=== PATIENT | male | born 1960 | race African-American/Black ===

== ENCOUNTER 2019-01-14 01:45 | Emergency (ER) | payer MEDICAID, OTHER ==
[~2019-01-14] VITALS: Ht 172.7 cm; Wt 70.0 kg
[~2019-01-14 01:45] MED LIST: AMLO-243 PO; AMLO1CAP13; ARIP30TA2 PO; BENA10TA10 PO; CARI350T27 PO; CICL34.62 TP; CYCL10TA7 PO; CYCL5TAB10; HYDR1TAB4; HYDR28CR28 TP; INSLAN SQ; INSU3INS6 SQ; LOVA40TA73 PO; METF-416 PO; METF500T3 PO; MIRT30TA77 PO; OMEP40CA34 PO
[2019-01-14] MEDS ORDERED: DEXTROSE 50% WATER 50ML SYRINGE IV STA (02:09)
[2019-01-14 02:39] LABS: BASOPHILS % 0.7 % (0.0-2.0); EOSINOPHILS % 2.2 % (0.0-5.0); HEMATOCRIT. 40.9 % (42.0-52.0); HEMOGLOBIN. 13.7 g/dL (14.0-18.0); LYMPHOCYTES % 37.5 % (20.0-50.0); MEAN CORPUSCULAR HEMOGLOBIN 29.7 pg (28.0-32.0); MEAN CORPUSCULAR VOLUME 88.8 fL (80.0-94.0); MEAN PLATELET VOLUME 8.1 fl (7.4-10.4); MONOCYTES % 7.4 % (2.0-8.0); NEUTROPHILS % 52.2 % (40.0-76.0); PLATELET 159 x1000/uL (130-400); RED BLOOD CELL COUNT 4.61 mill/uL (4.7-6.1); RED CELL DISTRIBUTION WIDTH 13.5 % (11.6-14.6)
[2019-01-14 02:42] LABS: CHLORIDE 110 mEq/L (98-107)
[2019-01-14 02:46] LABS: ETHANOL BLOOD < 10 mg/dL
[2019-01-14 04:47] LABS: CLARITY URINE CLEAR (CLEAR); COLOR URINE YELLOW (YELLOW); KETONES URINE NEGATIVE (NEGATIVE); LEUKOCYTE ESTERASE URINE NEGATIVE (NEGATIVE); NITRITE URINE NEGATIVE (NEGATIVE); OCCULT BLOOD URINE NEGATIVE (NEGATIVE); PH URINE 6.5 (4.5-8.0); PROTEIN URINE NEGATIVE (NEGATIVE); SPECIFIC GRAVITY URINE 1.012 (1.005-1.030)
[2019-01-14 04:55] LABS: *AMPHETAMINES SCREEN URINE NEGATIVE (NEGATIVE); *BARBITURATES SCREEN URINE NEGATIVE (NEGATIVE); *BENZODIAZEPINES SCREEN URINE NEGATIVE (NEGATIVE)
[2019-01-14 04:56] LABS: *COCAINE SCREEN URINE PRESUMTIVE POSITIVE (NEGATIVE); CANNABINOID URINE SCREEN NEGATIVE (NEGATIVE); METHADONE URINE SCREEN NEGATIVE (NEGATIVE); OPIATES URINE SCREEN NEGATIVE (NEGATIVE); PHENCYCLIDINE URINE SCREEN PRESUMTIVE POSITIVE (NEGATIVE)
[2019-01-14 07:55] VITALS: BP 123/69
== END 2019-01-14 08:02 | disposition left against medical advice (07) ==
LOC: ER 04:31 → EDBEDREQ 05:46 → CANRESERV 07:37 → ENRESERV 07:37 → ER 08:02 → CANBEDREQ 09:58
DX: E11.649 Type 2 diabetes mellitus with hypoglycemia without coma (principal); F10.10 Alcohol abuse, uncomplicated; F19.10 Other psychoactive substance abuse, uncomplicated; F17.200 Nicotine dependence, unspecified, uncomplicated; I10 Essential (primary) hypertension; Z79.84 Long term (current) use of oral hypoglycemic drugs; Z79.4 Long term (current) use of insulin; Z79.899 Other long term (current) drug therapy; Z90.49 Acquired absence of other specified parts of digestive tract; Z88.0 Allergy status to penicillin; Z91.013 Allergy to seafood
CPT/HCPCS: 36415; 80053; 80305; 80320; 81003; 82962; 85025; 96374; 99283; Z7610; G0480

== ENCOUNTER 2021-11-19 08:05 | Emergency (ER) | payer MEDICAID ==
[~2021-11-19] VITALS: Ht 175.3 cm; Wt 68.0 kg
[~2021-11-19 08:05] MED LIST changes: -AMLO1CAP13; -BENA10TA10 PO; +BENA10TA74 PO; -CARI350T27 PO; -CICL34.62 TP; -CYCL10TA7 PO; -CYCL5TAB10; -HYDR1TAB4; -HYDR28CR28 TP; -INSLAN SQ; -INSU3INS6 SQ; -METF500T3 PO; +OMEP40CA20 PO; -OMEP40CA34 PO
[2021-11-19] MEDS ORDERED: KETOROLAC 60MG/2ML VIAL IM ONE (08:30)
[2021-11-19] MEDS ORDERED: KETOROLAC 60MG/2ML VIAL IM NR (12:30)
[2021-11-19] MEDS ORDERED: METH-773 MT (16:09)
[2021-11-20] MEDS ORDERED: HYDROCODONE/ACETAMINOPHEN 5/325MG TABLET PO ONE (00:15)
[2021-11-20] MEDS ORDERED: DIPHENHYDRAMINE 25MG CAPSULE PO ONE (00:15)
[2021-11-20 14:00] VITALS: BP 126/76
== END 2021-11-20 15:30 | disposition home or self-care (01) ==
LOC: ER 08:05
DX: S32.010A Wedge compression fracture of first lumbar vertebra, initial encounter for closed fracture (principal); E11.9 Type 2 diabetes mellitus without complications; I11.0 Hypertensive heart disease with heart failure; I50.9 Heart failure, unspecified; Z90.49 Acquired absence of other specified parts of digestive tract; Z88.0 Allergy status to penicillin; Z91.013 Allergy to seafood; X58.XXXA Exposure to other specified factors, initial encounter; Y93.89 Activity, other specified; Y92.89 Other specified places as the place of occurrence of the external cause; Y99.8 Other external cause status
CPT/HCPCS: 72100; 96372; 99285; J1885; A4315

== ENCOUNTER 2021-11-20 18:35 | Inpatient (IN) | payer MEDICAID ==
[~2021-11-20] VITALS: Ht 165.1 cm; Wt 62.2 kg
[~2021-11-20 18:35] MED LIST changes: +METH-773 MT
[2021-11-20] MEDS ORDERED: SODIUM CHLORIDE 0.9% 1,000 ML IV ONE (19:15)
[2021-11-20 19:52] LABS: BASOPHILS % 0.3 % (0.0-2.0); EOSINOPHILS % 0.1 % (0.0-5.0); HEMATOCRIT. 31.3 % (42.0-52.0); HEMOGLOBIN. 9.4 g/dL (14.0-18.0); LYMPHOCYTES % 14.9 % (20.0-50.0); MEAN CORPUSCULAR HEMOGLOBIN 26.5 pg (28.0-32.0); MEAN CORPUSCULAR VOLUME 87.9 fL (80.0-94.0); MEAN PLATELET VOLUME 10.5 fl (7.4-10.4); MONOCYTES % 7.3 % (2.0-8.0); NEUTROPHILS % 77.4 % (40.0-76.0); PLATELET 168 x1000/uL (130-400); RED BLOOD CELL COUNT 3.56 mill/uL (4.7-6.1); RED CELL DISTRIBUTION WIDTH 15.3 % (11.6-14.6)
[2021-11-20 19:53] LABS: CHLORIDE 91 mEq/L (98-107)
[2021-11-20 20:00] LABS: BETA HYDROXYBUTYRATE 0.2 mMol/L (0.0-0.3)
[2021-11-20] MEDS ORDERED: INSULIN LISPRO 100 UNITS/ML SUBCUT ONE (20:15)
[2021-11-20] MEDS: SODIUM CHLORIDE 0.9% 1,000 ML IV NR ×3 (21:29→23:47)
[2021-11-21] VITALS (8 sets, daily range): BP systolic 78–124; BP diastolic 37–88
[2021-11-21] MEDS ORDERED: SODIUM CHLORIDE 0.9% 1,000 ML IV ONE (00:30)
[2021-11-21] MEDS ORDERED: DEXTROSE 50% WATER 50ML SYRINGE IV PRN (10:00)
[2021-11-21] MEDS: SODIUM CHLORIDE 0.9% 1,000 ML IV SCH (11:01)
[2021-11-21] MEDS: AMLODIPINE 10MG TABLET PO SCH (11:02)
[2021-11-21] MEDS: BENAZEPRIL 10MG TABLET PO SCH (11:02)
[2021-11-21 11:46] LABS: BASOPHILS % 0.3 % (0.0-2.0); EOSINOPHILS % 0.6 % (0.0-5.0); HEMATOCRIT. 26.9 % (42.0-52.0); HEMOGLOBIN. 8.9 g/dL (14.0-18.0); LYMPHOCYTES % 26.6 % (20.0-50.0); MEAN CORPUSCULAR HEMOGLOBIN 27.1 pg (28.0-32.0); MEAN CORPUSCULAR VOLUME 81.6 fL (80.0-94.0); MEAN PLATELET VOLUME 8.7 fl (7.4-10.4); MONOCYTES % 10.1 % (2.0-8.0); NEUTROPHILS % 62.4 % (40.0-76.0); PLATELET 163 x1000/uL (130-400); RED BLOOD CELL COUNT 3.29 mill/uL (4.7-6.1); RED CELL DISTRIBUTION WIDTH 14.8 % (11.6-14.6)
[2021-11-21 11:48] LABS: CLARITY URINE CLEAR (CLEAR); COLOR URINE YELLOW (YELLOW); KETONES URINE NEGATIVE (NEGATIVE); LEUKOCYTE ESTERASE URINE NEGATIVE (NEGATIVE); NITRITE URINE NEGATIVE (NEGATIVE); OCCULT BLOOD URINE NEGATIVE (NEGATIVE); PROTEIN URINE NEGATIVE (NEGATIVE); SPECIFIC GRAVITY URINE 1.031 (1.005-1.030); UROBILINOGEN URINE 0.2 E.U./dL (0.2-1.0)
[2021-11-21 11:54] LABS: CHLORIDE 104 mEq/L (98-107)
[2021-11-21] MEDS: BLOOD SUGAR DIAGNOSTIC STRIP TEST SCH ×3 (12:02→21:00)
[2021-11-21] MEDS: INSULIN LISPRO 100 UNITS/ML SUBCUT SCH ×3 (12:19→21:00)
[2021-11-21] MEDS: METFORMIN HCL 500MG TABLET PO SCH ×2 (12:23→16:39)
[2021-11-21] MEDS: HYDROCODONE/ACETAMINOPHEN 5/325MG TABLET PO PRN (12:47)
[2021-11-21] MEDS ORDERED: NALOXONE HCL 0.4MG/ML VIAL IV PRN (13:00)
[2021-11-21 14:09] LABS: *AMPHETAMINES SCREEN URINE NEGATIVE (NEGATIVE); *BARBITURATES SCREEN URINE NEGATIVE (NEGATIVE); *BENZODIAZEPINES SCREEN URINE NEGATIVE (NEGATIVE); *COCAINE SCREEN URINE PRESUMTIVE POSITIVE (NEGATIVE)
[2021-11-21 14:10] LABS: CANNABINOID URINE SCREEN NEGATIVE (NEGATIVE); METHADONE URINE SCREEN NEGATIVE (NEGATIVE); OPIATES URINE SCREEN NEGATIVE (NEGATIVE); PHENCYCLIDINE URINE SCREEN NEGATIVE (NEGATIVE)
[2021-11-21 15:07] LABS: SODIUM URINE RANDOM 20 mEq/L
[2021-11-21] MEDS: DIPHENOXYLATE/ATROPINE 2.5/0.025MG TABLET PO PRN (15:20)
[2021-11-21] MEDS: ARIPIPRAZOLE 5MG TABLET PO SCH (16:39)
[2021-11-21] MEDS: ATORVASTATIN CALCIUM 40MG TABLET PO SCH (21:00)
[2021-11-21] MEDS ORDERED: MEDICATION NOT ON FORMULARY EA (Lovastatin 40 MG) PO SCH (21:00)
[2021-11-21] MEDS: MIRTAZAPINE 15MG TABLET PO SCH (21:00)
[2021-11-22] VITALS: BP 88/47
[2021-11-22 04:00] VITALS: BP 107/61
[2021-11-22 06:38] LABS: BASOPHILS % 0.2 % (0.0-2.0); EOSINOPHILS % 0.8 % (0.0-5.0); HEMATOCRIT. 26.1 % (42.0-52.0); HEMOGLOBIN. 8.7 g/dL (14.0-18.0); LYMPHOCYTES % 35.7 % (20.0-50.0); MEAN CORPUSCULAR HEMOGLOBIN 26.9 pg (28.0-32.0); MEAN CORPUSCULAR VOLUME 80.9 fL (80.0-94.0); MEAN PLATELET VOLUME 8.8 fl (7.4-10.4); MONOCYTES % 8.7 % (2.0-8.0); NEUTROPHILS % 54.6 % (40.0-76.0); PLATELET 154 x1000/uL (130-400); RED BLOOD CELL COUNT 3.22 mill/uL (4.7-6.1); RED CELL DISTRIBUTION WIDTH 14.4 % (11.6-14.6)
[2021-11-22] MEDS: BLOOD SUGAR DIAGNOSTIC STRIP TEST SCH ×4 (06:44→21:00)
[2021-11-22 06:47] LABS: CHLORIDE 105 mEq/L (98-107)
[2021-11-22] MEDS: SODIUM CHLORIDE 0.9% 1,000 ML IV SCH (06:52)
[2021-11-22] MEDS: INSULIN LISPRO 100 UNITS/ML SUBCUT SCH ×4 (06:53→22:21)
[2021-11-22 08:00] VITALS: BP 99/58
[2021-11-22] MEDS: BENAZEPRIL 10MG TABLET PO SCH (08:03)
[2021-11-22] MEDS: AMLODIPINE 10MG TABLET PO SCH (08:03)
[2021-11-22] MEDS: METFORMIN HCL 500MG TABLET PO SCH ×3 (08:09→17:01)
[2021-11-22] MEDS ORDERED: ATORVASTATIN PO SCH (09:00)
[2021-11-22] MEDS ORDERED: BENAZEPRIL 10MG TABLET PO SCH (09:00)
[2021-11-22] MEDS ORDERED: AMLODIPINE PO SCH (09:00)
[2021-11-22] MEDS: HYDROCODONE/ACETAMINOPHEN 5/325MG TABLET PO PRN ×2 (09:48→17:06)
[2021-11-22 12:00] VITALS: BP 114/68
[2021-11-22] MEDS: FERROUS SULFATE 325MG TABLET PO SCH ×2 (12:17→17:02)
[2021-11-22] MEDS: VANCOMYCIN 1GM PMX (XELLIA) 200 ML IV SCH (15:45)
[2021-11-22 16:00] VITALS: BP 97/46
[2021-11-22] MEDS: ARIPIPRAZOLE 5MG TABLET PO SCH (17:00)
[2021-11-22 20:00] VITALS: BP 111/75
[2021-11-22] MEDS: ATORVASTATIN CALCIUM 40MG TABLET PO SCH (22:16)
[2021-11-22] MEDS: MIRTAZAPINE 15MG TABLET PO SCH (22:17)
[2021-11-23] VITALS (7 sets, daily range): BP systolic 98–126; BP diastolic 54–84
[2021-11-23] MEDS: VANCOMYCIN 1000MG/20ML ORAL SOLN PO SCH ×4 (01:11→18:32)
[2021-11-23] MEDS: SODIUM CHLORIDE 0.9% 1,000 ML IV SCH ×2 (01:12→21:47)
[2021-11-23] MEDS: VANCOMYCIN 1GM PMX (XELLIA) 200 ML IV SCH ×2 (04:31→21:46)
[2021-11-23] MEDS: INSULIN LISPRO 100 UNITS/ML SUBCUT SCH ×4 (07:05→21:49)
[2021-11-23] MEDS: BLOOD SUGAR DIAGNOSTIC STRIP TEST SCH ×4 (07:10→21:36)
[2021-11-23 07:18] LABS: BASOPHILS % 0.3 % (0.0-2.0); EOSINOPHILS % 0.7 % (0.0-5.0); HEMOGLOBIN. 8.9 g/dL (14.0-18.0); LYMPHOCYTES % 30.8 % (20.0-50.0); MEAN CORPUSCULAR HEMOGLOBIN 26.7 pg (28.0-32.0); MEAN CORPUSCULAR VOLUME 80.9 fL (80.0-94.0); MEAN PLATELET VOLUME 9.1 fl (7.4-10.4); MONOCYTES % 11.1 % (2.0-8.0); NEUTROPHILS % 57.1 % (40.0-76.0); PLATELET 149 x1000/uL (130-400); RED BLOOD CELL COUNT 3.33 mill/uL (4.7-6.1); RED CELL DISTRIBUTION WIDTH 14.6 % (11.6-14.6)
[2021-11-23 07:39] LABS: CHLORIDE 109 mEq/L (98-107)
[2021-11-23] MEDS: METFORMIN HCL 500MG TABLET PO SCH ×3 (09:09→17:39)
[2021-11-23] MEDS: FERROUS SULFATE 325MG TABLET PO SCH ×3 (09:09→17:39)
[2021-11-23] MEDS: BENAZEPRIL 10MG TABLET PO SCH (09:10)
[2021-11-23] MEDS: AMLODIPINE 10MG TABLET PO SCH (09:10)
[2021-11-23] MEDS: HYDROCODONE/ACETAMINOPHEN 5/325MG TABLET PO PRN ×2 (14:08→22:17)
[2021-11-23] MEDS: ARIPIPRAZOLE 5MG TABLET PO SCH (17:39)
[2021-11-23] MEDS: MIRTAZAPINE 15MG TABLET PO SCH (21:45)
[2021-11-23] MEDS: ATORVASTATIN CALCIUM 40MG TABLET PO SCH (21:45)
[2021-11-23] MEDS: DIPHENOXYLATE/ATROPINE 2.5/0.025MG TABLET PO PRN (22:17)
[2021-11-24] MEDS: VANCOMYCIN 1000MG/20ML ORAL SOLN PO SCH ×4 (01:23→17:43)
[2021-11-24 04:00] VITALS: BP 141/86
[2021-11-24] MEDS: BLOOD SUGAR DIAGNOSTIC STRIP TEST SCH ×4 (06:46→21:00)
[2021-11-24] MEDS: INSULIN LISPRO 100 UNITS/ML SUBCUT SCH ×4 (06:48→22:44)
[2021-11-24 08:01] VITALS: BP 130/74
[2021-11-24] MEDS: BENAZEPRIL 10MG TABLET PO SCH (08:25)
[2021-11-24] MEDS: METFORMIN HCL 500MG TABLET PO SCH ×3 (08:26→17:42)
[2021-11-24] MEDS: FERROUS SULFATE 325MG TABLET PO SCH ×3 (08:26→17:43)
[2021-11-24] MEDS: VANCOMYCIN 1GM PMX (XELLIA) 200 ML IV SCH (08:26)
[2021-11-24] MEDS: AMLODIPINE 10MG TABLET PO SCH (08:28)
[2021-11-24 08:50] LABS: CHLORIDE 110 mEq/L (98-107)
[2021-11-24 11:49] VITALS: BP 138/83
[2021-11-24] MEDS: INSULIN GLARGINE 100 UNITS/ML SUBCUT SCH (13:27)
[2021-11-24 15:33] VITALS: BP 90/50
[2021-11-24] MEDS: SODIUM CHLORIDE 0.9% 1,000 ML IV SCH (16:23)
[2021-11-24] MEDS: ARIPIPRAZOLE 5MG TABLET PO SCH (17:43)
[2021-11-24 20:00] VITALS: BP 118/75
[2021-11-24] MEDS ORDERED: INSULIN LISPRO 100 UNITS/ML SUBCUT ONE (22:32)
[2021-11-24] MEDS ORDERED: HYDROCODONE/ACETAMINOPHEN 5/325MG TABLET ONE (22:37)
[2021-11-24] MEDS: HYDROCODONE/ACETAMINOPHEN 5/325MG TABLET PO PRN (22:46)
[2021-11-25] VITALS: BP 123/78
[2021-11-25] MEDS: VANCOMYCIN 750MG PMX (XELLIA) 150 ML IV SCH ×2 (00:29→13:04)
[2021-11-25] MEDS: VANCOMYCIN 1000MG/20ML ORAL SOLN PO SCH ×4 (00:30→17:39)
[2021-11-25 04:00] VITALS: BP 121/72
[2021-11-25] MEDS: ATORVASTATIN CALCIUM 40MG TABLET PO SCH ×2 (04:54→21:00)
[2021-11-25] MEDS: MIRTAZAPINE 15MG TABLET PO SCH ×2 (04:55→20:37)
[2021-11-25] MEDS ORDERED: HYDROCODONE/ACETAMINOPHEN 5/325MG TABLET ONE (05:56)
[2021-11-25] MEDS ORDERED: INSULIN LISPRO 100 UNITS/ML SUBCUT ONE (05:59)
[2021-11-25] MEDS: BLOOD SUGAR DIAGNOSTIC STRIP TEST SCH ×4 (06:13→21:26)
[2021-11-25] MEDS: HYDROCODONE/ACETAMINOPHEN 5/325MG TABLET PO PRN ×3 (06:15→17:37)
[2021-11-25] MEDS: INSULIN LISPRO 100 UNITS/ML SUBCUT SCH ×4 (06:16→21:25)
[2021-11-25] MEDS: FERROUS SULFATE 325MG TABLET PO SCH ×3 (07:40→17:36)
[2021-11-25] MEDS: METFORMIN HCL 500MG TABLET PO SCH ×3 (07:40→17:36)
[2021-11-25 08:00] VITALS: BP 115/85
[2021-11-25] MEDS: BENAZEPRIL 10MG TABLET PO SCH (09:00)
[2021-11-25] MEDS ORDERED: AMLODIPINE 10MG TABLET ONE (09:32)
[2021-11-25] MEDS: AMLODIPINE 10MG TABLET PO SCH (09:35)
[2021-11-25] MEDS: INSULIN GLARGINE 100 UNITS/ML SUBCUT SCH (09:38)
[2021-11-25 12:00] VITALS: BP 125/86
[2021-11-25 16:00] VITALS: BP 138/78
[2021-11-25] MEDS: ARIPIPRAZOLE 5MG TABLET PO SCH (17:35)
[2021-11-25 17:57] LABS: HEMATOCRIT 32.5 % (42.0-52.0); HEMOGLOBIN 10.5 g/dL (14.0-18.0); MEAN CORPUSCULAR HEMOGLOBIN 26.8 pg (28.0-32.0); MEAN CORPUSCULAR VOLUME 82.9 fL (80.0-94.0); PLATELET 191 x1000/uL (130-400); RED BLOOD CELL COUNT 3.92 mill/uL (4.7-6.1); RED CELL DISTRIBUTION WIDTH 15.1 % (11.6-14.6)
[2021-11-25 18:06] LABS: PROTHROMBIN TIME 10.3 sec (9.6-11.0)
[2021-11-25 18:14] LABS: CHLORIDE 108 mEq/L (98-107)
[2021-11-25 20:00] VITALS: BP 119/86
[2021-11-25] MEDS ORDERED: SODIUM POLYSTYRENE SULFONATE 15 G/60 ML BOT PO NR (20:00)
[2021-11-26] VITALS (31 sets, daily range): BP systolic 89–175; BP diastolic 25–113
[2021-11-26] MEDS: VANCOMYCIN 1000MG/20ML ORAL SOLN PO SCH ×5 (06:00→23:23)
[2021-11-26] MEDS: BLOOD SUGAR DIAGNOSTIC STRIP TEST SCH ×3 (06:52→20:59)
[2021-11-26] MEDS: METFORMIN HCL 500MG TABLET PO SCH ×2 (06:52→12:40)
[2021-11-26] MEDS: FERROUS SULFATE 325MG TABLET PO SCH ×2 (06:53→12:40)
[2021-11-26] MEDS: INSULIN LISPRO 100 UNITS/ML SUBCUT SCH ×3 (06:53→20:59)
[2021-11-26] MEDS: HYDROCODONE/ACETAMINOPHEN 5/325MG TABLET PO PRN (08:28)
[2021-11-26 08:40] LABS: BASOPHILS % 0.4 % (0.0-2.0); EOSINOPHILS % 1.1 % (0.0-5.0); HEMATOCRIT. 33.3 % (42.0-52.0); HEMOGLOBIN. 10.7 g/dL (14.0-18.0); LYMPHOCYTES % 38.3 % (20.0-50.0); MEAN CORPUSCULAR HEMOGLOBIN 26.4 pg (28.0-32.0); MEAN CORPUSCULAR VOLUME 81.8 fL (80.0-94.0); MEAN PLATELET VOLUME 8.6 fl (7.4-10.4); MONOCYTES % 7.6 % (2.0-8.0); NEUTROPHILS % 52.6 % (40.0-76.0); PLATELET 209 x1000/uL (130-400); RED BLOOD CELL COUNT 4.07 mill/uL (4.7-6.1); RED CELL DISTRIBUTION WIDTH 14.8 % (11.6-14.6)
[2021-11-26] MEDS: BENAZEPRIL 10MG TABLET PO SCH (09:00)
[2021-11-26] MEDS: AMLODIPINE 10MG TABLET PO SCH (09:00)
[2021-11-26 09:02] LABS: CHLORIDE 109 mEq/L (98-107)
[2021-11-26 09:05] LABS: CLARITY URINE CLEAR (CLEAR); COLOR URINE YELLOW (YELLOW); KETONES URINE NEGATIVE (NEGATIVE); LEUKOCYTE ESTERASE URINE 2+ (NEGATIVE); NITRITE URINE NEGATIVE (NEGATIVE); OCCULT BLOOD URINE NEGATIVE (NEGATIVE); PH URINE 5.5 (4.5-8.0); PROTEIN URINE NEGATIVE (NEGATIVE); SPECIFIC GRAVITY URINE 1.009 (1.005-1.030); UROBILINOGEN URINE 0.2 E.U./dL (0.2-1.0)
[2021-11-26] MEDS: INSULIN GLARGINE 100 UNITS/ML SUBCUT SCH (10:00)
[2021-11-26] MEDS ORDERED: LIDOCAINE HCL/EPINEPHRINE 1%-EPI 1:100,000 20 ML VIAL ONE (11:04)
[2021-11-26] MEDS ORDERED: GENTAMICIN SULF 40MG/ML 2ML VIAL ONE (11:04)
[2021-11-26] MEDS ORDERED: THROMBIN (BOVINE) 5000 UNITS/VIAL TOP ONE (11:04)
[2021-11-26] MEDS ORDERED: DEXT 5%/0.45% NACL 1000ML 1,000 ML IV SCH (12:00)
[2021-11-26] MEDS ORDERED: ROCURONIUM BROMIDE 10MG/ML VIAL 5ML IV ONE ×2 (13:06→15:03)
[2021-11-26] MEDS ORDERED: PROPOFOL 200MG/20ML VIAL IV ONE (13:06)
[2021-11-26] MEDS ORDERED: FENTANYL CITRATE/PF 50MCG/ML 2ML VIAL ONE (13:06)
[2021-11-26] MEDS ORDERED: LIDOCAINE HCL 1% 10 MG/ML 10ML VIAL ONE (13:07)
[2021-11-26] MEDS: VANCOMYCIN 750MG PMX (XELLIA) 150 ML IV SCH ×2 (13:07)
[2021-11-26] MEDS ORDERED: MIDAZOLAM HCL 2 MG/2 ML VIAL ONE (13:07)
[2021-11-26] MEDS ORDERED: ONDANSETRON HCL 4MG/2ML INJ ONE (13:08)
[2021-11-26] MEDS ORDERED: DEXAMETHASONE 4MG/ML 1ML VIAL ONE (13:08)
[2021-11-26] MEDS ORDERED: CEFAZOLIN SODIUM 1000MG/VIAL ONE (13:08)
[2021-11-26] MEDS ORDERED: METOCLOPRAMIDE HCL 10MG/2ML VIAL ONE (13:43)
[2021-11-26] MEDS ORDERED: CLINDAMYCIN 900 MG PREMIX 50 ML IV ONE (14:48)
[2021-11-26] MEDS ORDERED: GLYCOPYRROLATE 0.2 MG/ML 2ML VIAL ONE (16:09)
[2021-11-26] MEDS ORDERED: SODIUM CHLORIDE 0.9% 1,000 ML IV SCH (16:45)
[2021-11-26] MEDS ORDERED: HYDROMORPHONE HCL/PF 2MG/ML CPJ IV PRN ×2 (16:45→18:15)
[2021-11-26] MEDS: ARIPIPRAZOLE 5MG TABLET PO SCH (17:00)
[2021-11-26] MEDS: MORPHINE SULFATE 4 MG/ML CPJ (NOT FOR IM USE) IV PRN ×2 (17:40→21:56)
[2021-11-26] MEDS ORDERED: NALOXONE HCL 0.4MG/ML VIAL IV PRN (18:15)
[2021-11-26] MEDS: DEXAMETHASONE 4MG/ML 1ML VIAL IV SCH ×2 (18:18→23:23)
[2021-11-26] MEDS: DEXT 5%/LACTATED RINGERS 1,000 ML IV SCH (18:18)
[2021-11-26] MEDS: CLINDAMYCIN 300 MG in DEXTROSE 5% WATER 50 ML IV SCH (18:19)
[2021-11-26] MEDS ORDERED: NICARDIPINE 100 MG in SODIUM CHLORIDE 0.9% 60 ML IV PRN (19:30)
[2021-11-26] MEDS: ATORVASTATIN CALCIUM 40MG TABLET PO SCH (20:59)
[2021-11-26] MEDS: MIRTAZAPINE 15MG TABLET PO SCH (20:59)
[2021-11-27] VITALS (86 sets, daily range): BP systolic 64–159; BP diastolic 17–96
[2021-11-27] MEDS: MORPHINE SULFATE 4 MG/ML CPJ (NOT FOR IM USE) IV PRN ×4 (00:27→19:05)
[2021-11-27] MEDS: DEXT 5%/LACTATED RINGERS 1,000 ML IV SCH (02:15)
[2021-11-27] MEDS: CLINDAMYCIN 300 MG in DEXTROSE 5% WATER 50 ML IV SCH ×3 (03:27→18:06)
[2021-11-27] MEDS: VANCOMYCIN 1000MG/20ML ORAL SOLN PO SCH ×3 (05:28→18:06)
[2021-11-27] MEDS: DEXAMETHASONE 4MG/ML 1ML VIAL IV SCH ×3 (05:28→18:06)
[2021-11-27 05:46] LABS: BASOPHILS % 0.2 % (0.0-2.0); LYMPHOCYTES % 9.6 % (20.0-50.0); MEAN CORPUSCULAR HEMOGLOBIN 26.7 pg (28.0-32.0); MEAN CORPUSCULAR VOLUME 82.6 fL (80.0-94.0); MONOCYTES % 2.9 % (2.0-8.0); NEUTROPHILS % 87.3 % (40.0-76.0); PLATELET 188 x1000/uL (130-400); RED BLOOD CELL COUNT 3.32 mill/uL (4.7-6.1); RED CELL DISTRIBUTION WIDTH 14.7 % (11.6-14.6)
[2021-11-27 06:01] LABS: CHLORIDE 109 mEq/L (98-107)
[2021-11-27 06:22] LABS: HEMATOCRIT. 27.4 % (42.0-52.0); HEMOGLOBIN. 8.9 g/dL (14.0-18.0)
[2021-11-27] MEDS: INSULIN LISPRO 100 UNITS/ML SUBCUT SCH ×6 (06:28→22:07)
[2021-11-27] MEDS: BLOOD SUGAR DIAGNOSTIC STRIP TEST SCH ×6 (06:28→21:58)
[2021-11-27] MEDS: METFORMIN HCL 500MG TABLET PO SCH ×3 (06:41→18:04)
[2021-11-27] MEDS: FERROUS SULFATE 325MG TABLET PO SCH ×3 (06:41→18:04)
[2021-11-27] MEDS ORDERED: VANCOMYCIN 1.25GM PMX (XELLIA) 250 ML IV SCH (09:00)
[2021-11-27] MEDS: AMLODIPINE 10MG TABLET PO SCH (09:24)
[2021-11-27] MEDS: SODIUM CHLORIDE 0.9% 1,000 ML IV SCH ×2 (09:26→22:02)
[2021-11-27] MEDS: INSULIN GLARGINE 100 UNITS/ML SUBCUT SCH (11:48)
[2021-11-27] MEDS: BENAZEPRIL 10MG TABLET PO SCH (15:26)
[2021-11-27] MEDS: ARIPIPRAZOLE 5MG TABLET PO SCH (18:03)
[2021-11-27] MEDS: MIRTAZAPINE 15MG TABLET PO SCH (20:36)
[2021-11-27] MEDS: ATORVASTATIN CALCIUM 40MG TABLET PO SCH (20:37)
[2021-11-27] MEDS: HYDROCODONE/ACETAMINOPHEN 5/325MG TABLET PO PRN (20:37)
[2021-11-27] MEDS: MORPHINE SULFATE 2 MG/ML CPJ (NOT FOR IM USE) IV PRN (23:03)
[2021-11-28] VITALS: BP 90/54
[2021-11-28 04:00] VITALS: BP 105/66
[2021-11-28] MEDS: CLINDAMYCIN 300 MG in DEXTROSE 5% WATER 50 ML IV SCH ×3 (05:10→18:07)
[2021-11-28] MEDS: DEXAMETHASONE 4MG/ML 1ML VIAL IV SCH ×4 (05:25→17:03)
[2021-11-28] MEDS: MORPHINE SULFATE 2 MG/ML CPJ (NOT FOR IM USE) IV PRN ×3 (05:26→21:11)
[2021-11-28] MEDS: VANCOMYCIN 1000MG/20ML ORAL SOLN PO SCH ×4 (05:38→17:46)
[2021-11-28] MEDS: BLOOD SUGAR DIAGNOSTIC STRIP TEST SCH ×4 (07:41→21:10)
[2021-11-28] MEDS: INSULIN LISPRO 100 UNITS/ML SUBCUT SCH ×4 (07:50→21:50)
[2021-11-28 08:02] VITALS: BP 119/60
[2021-11-28 09:12] LABS: HEMATOCRIT. 26.5 % (42.0-52.0); HEMOGLOBIN. 8.7 g/dL (14.0-18.0); MEAN CORPUSCULAR HEMOGLOBIN 26.4 pg (28.0-32.0); MEAN PLATELET VOLUME 8.6 fl (7.4-10.4); PLATELET 203 x1000/uL (130-400); RED BLOOD CELL COUNT 3.32 mill/uL (4.7-6.1); RED CELL DISTRIBUTION WIDTH 14.9 % (11.6-14.6)
[2021-11-28 09:22] LABS: CHLORIDE 108 mEq/L (98-107)
[2021-11-28] MEDS: AMLODIPINE 10MG TABLET PO SCH (09:40)
[2021-11-28] MEDS: METFORMIN HCL 500MG TABLET PO SCH ×3 (09:40→17:04)
[2021-11-28] MEDS: FERROUS SULFATE 325MG TABLET PO SCH ×3 (09:40→17:04)
[2021-11-28] MEDS: BENAZEPRIL 10MG TABLET PO SCH (10:16)
[2021-11-28] MEDS ORDERED: VANCOMYCIN 1.25GM PMX (XELLIA) 250 ML IV SCH (11:00)
[2021-11-28 11:21] LABS: PLATELET ESTIMATE NORMAL
[2021-11-28] MEDS: SODIUM CHLORIDE 0.9% 1,000 ML IV SCH (11:32)
[2021-11-28] MEDS: INSULIN GLARGINE 100 UNITS/ML SUBCUT SCH (11:51)
[2021-11-28 12:30] VITALS: BP 124/81
[2021-11-28] MEDS: HYDROCODONE/ACETAMINOPHEN 5/325MG TABLET PO PRN ×2 (12:50→23:00)
[2021-11-28 16:30] VITALS: BP 127/64
[2021-11-28] MEDS: ARIPIPRAZOLE 5MG TABLET PO SCH (17:03)
[2021-11-28 20:00] VITALS: BP 128/75
[2021-11-28] MEDS: ATORVASTATIN CALCIUM 40MG TABLET PO SCH (21:09)
[2021-11-28] MEDS: MIRTAZAPINE 15MG TABLET PO SCH (21:09)
[2021-11-29] VITALS: BP 105/53
[2021-11-29] MEDS: VANCOMYCIN 1000MG/20ML ORAL SOLN PO SCH ×4 (00:57→18:48)
[2021-11-29] MEDS: SODIUM CHLORIDE 0.9% 1,000 ML IV SCH (00:59)
[2021-11-29] MEDS: MORPHINE SULFATE 2 MG/ML CPJ (NOT FOR IM USE) IV PRN ×6 (01:43→21:59)
[2021-11-29 04:00] VITALS: BP 141/75
[2021-11-29] MEDS: HYDROCODONE/ACETAMINOPHEN 5/325MG TABLET PO PRN ×2 (04:41→18:47)
[2021-11-29] MEDS: BLOOD SUGAR DIAGNOSTIC STRIP TEST SCH ×4 (06:50→21:52)
[2021-11-29 08:23] VITALS: BP 122/83
[2021-11-29 08:35] LABS: CHLORIDE 109 mEq/L (98-107)
[2021-11-29] MEDS: METFORMIN HCL 500MG TABLET PO SCH ×3 (09:42→18:48)
[2021-11-29] MEDS: INSULIN LISPRO 100 UNITS/ML SUBCUT SCH ×4 (09:43→21:00)
[2021-11-29] MEDS: FERROUS SULFATE 325MG TABLET PO SCH ×3 (09:43→18:48)
[2021-11-29] MEDS: INSULIN GLARGINE 100 UNITS/ML SUBCUT SCH (09:44)
[2021-11-29] MEDS: AMLODIPINE 10MG TABLET PO SCH (09:45)
[2021-11-29 12:30] VITALS: BP 129/87
[2021-11-29] MEDS: VANCOMYCIN 1GM PMX (XELLIA) 200 ML IV SCH (13:27)
[2021-11-29] MEDS: BENAZEPRIL 10MG TABLET PO SCH (13:27)
[2021-11-29 15:10] VITALS: BP 110/73
[2021-11-29] MEDS: ARIPIPRAZOLE 5MG TABLET PO SCH (18:48)
[2021-11-29 20:00] VITALS: BP 119/77
[2021-11-29] MEDS: ATORVASTATIN CALCIUM 40MG TABLET PO SCH (21:54)
[2021-11-29] MEDS: MIRTAZAPINE 15MG TABLET PO SCH (21:54)
[2021-11-30] VITALS (7 sets, daily range): BP systolic 90–138; BP diastolic 49–87
[2021-11-30] MEDS: VANCOMYCIN 1000MG/20ML ORAL SOLN PO SCH ×4 (00:56→17:45)
[2021-11-30] MEDS: HYDROCODONE/ACETAMINOPHEN 5/325MG TABLET PO PRN ×4 (01:04→15:26)
[2021-11-30] MEDS: BLOOD SUGAR DIAGNOSTIC STRIP TEST SCH ×4 (06:32→21:04)
[2021-11-30] MEDS: INSULIN LISPRO 100 UNITS/ML SUBCUT SCH ×4 (07:50→21:00)
[2021-11-30 08:37] LABS: BASOPHILS % 0.5 % (0.0-2.0); EOSINOPHILS % 0.8 % (0.0-5.0); HEMATOCRIT. 25.5 % (42.0-52.0); HEMOGLOBIN. 8.4 g/dL (14.0-18.0); LYMPHOCYTES % 21.9 % (20.0-50.0); MEAN CORPUSCULAR HEMOGLOBIN 26.9 pg (28.0-32.0); MEAN CORPUSCULAR VOLUME 81.5 fL (80.0-94.0); MEAN PLATELET VOLUME 7.9 fl (7.4-10.4); MONOCYTES % 7.8 % (2.0-8.0); PLATELET 221 x1000/uL (130-400); RED BLOOD CELL COUNT 3.13 mill/uL (4.7-6.1); RED CELL DISTRIBUTION WIDTH 15.3 % (11.6-14.6)
[2021-11-30 08:53] LABS: CHLORIDE 109 mEq/L (98-107)
[2021-11-30] MEDS: FERROUS SULFATE 325MG TABLET PO SCH ×3 (09:37→17:44)
[2021-11-30] MEDS: METFORMIN HCL 500MG TABLET PO SCH ×3 (09:37→17:44)
[2021-11-30] MEDS: BENAZEPRIL 10MG TABLET PO SCH (09:38)
[2021-11-30] MEDS: AMLODIPINE 10MG TABLET PO SCH (09:38)
[2021-11-30] MEDS: VANCOMYCIN 1GM PMX (XELLIA) 200 ML IV SCH (11:03)
[2021-11-30] MEDS: INSULIN GLARGINE 100 UNITS/ML SUBCUT SCH (11:17)
[2021-11-30] MEDS: ARIPIPRAZOLE 5MG TABLET PO SCH (17:43)
[2021-11-30] MEDS: ATORVASTATIN CALCIUM 40MG TABLET PO SCH (21:03)
[2021-11-30] MEDS: MIRTAZAPINE 15MG TABLET PO SCH (21:03)
[2021-11-30] MEDS: HYDROCODONE/ACETAMINOPHEN 10/325MG TABLET PO PRN (21:04)
[2021-11-30] MEDS: BACLOFEN 10MG TABLET PO SCH (22:08)
[2021-12-01] VITALS (7 sets, daily range): BP systolic 94–136; BP diastolic 53–81
[2021-12-01] MEDS: VANCOMYCIN 1000MG/20ML ORAL SOLN PO SCH ×4 (00:57→17:54)
[2021-12-01] MEDS: HYDROCODONE/ACETAMINOPHEN 10/325MG TABLET PO PRN ×3 (04:12→21:49)
[2021-12-01] MEDS: BLOOD SUGAR DIAGNOSTIC STRIP TEST SCH ×4 (06:47→21:01)
[2021-12-01 06:56] LABS: BASOPHILS % 0.4 % (0.0-2.0); EOSINOPHILS % 0.3 % (0.0-5.0); HEMATOCRIT. 23.3 % (42.0-52.0); HEMOGLOBIN. 7.6 g/dL (14.0-18.0); LYMPHOCYTES % 18.2 % (20.0-50.0); MEAN CORPUSCULAR HEMOGLOBIN 26.6 pg (28.0-32.0); MEAN CORPUSCULAR VOLUME 81.6 fL (80.0-94.0); MEAN PLATELET VOLUME 8.5 fl (7.4-10.4); MONOCYTES % 7.6 % (2.0-8.0); NEUTROPHILS % 73.5 % (40.0-76.0); PLATELET 200 x1000/uL (130-400); RED BLOOD CELL COUNT 2.86 mill/uL (4.7-6.1); RED CELL DISTRIBUTION WIDTH 15.3 % (11.6-14.6)
[2021-12-01 07:13] LABS: CHLORIDE 109 mEq/L (98-107)
[2021-12-01] MEDS: INSULIN LISPRO 100 UNITS/ML SUBCUT SCH ×4 (07:50→21:50)
[2021-12-01] MEDS: FERROUS SULFATE 325MG TABLET PO SCH ×3 (08:28→17:53)
[2021-12-01] MEDS: METFORMIN HCL 500MG TABLET PO SCH ×3 (08:28→17:53)
[2021-12-01] MEDS: BENAZEPRIL 10MG TABLET PO SCH (08:28)
[2021-12-01] MEDS: BACLOFEN 10MG TABLET PO SCH ×2 (08:28→17:54)
[2021-12-01] MEDS: AMLODIPINE 10MG TABLET PO SCH (08:28)
[2021-12-01] MEDS: VANCOMYCIN 1GM PMX (XELLIA) 200 ML IV SCH (10:32)
[2021-12-01] MEDS: INSULIN GLARGINE 100 UNITS/ML SUBCUT SCH (10:33)
[2021-12-01] MEDS: ARIPIPRAZOLE 5MG TABLET PO SCH (17:53)
[2021-12-01] MEDS: ATORVASTATIN CALCIUM 40MG TABLET PO SCH (21:48)
[2021-12-01] MEDS: MIRTAZAPINE 15MG TABLET PO SCH (21:49)
[2021-12-02] VITALS: BP 112/73
[2021-12-02] MEDS: VANCOMYCIN 1000MG/20ML ORAL SOLN PO SCH
== END 2021-12-02 00:50 | DRG 710 ==
LOC: ER 18:35 → 8WST 23:16 → ENRESERV 11-21 03:00 → ER 11-21 05:07 → MICUSO 11-26 16:55 → 6WST 11-27 21:10
PROVIDERS: ADMIT Internal Medicine; ATTEND Internal Medicine
PROC: 0RG20J1 Fusion of 2 or more Cervical Vertebral Joints with Synthetic Substitute, Posterior Approach, Posterior Column, Open Approach (ICD-10-PCS; principal; 2021-11-26)
PROC: 01N10ZZ Release Cervical Nerve, Open Approach (ICD-10-PCS; 2021-11-26)
DX: A41.9 Sepsis, unspecified organism (principal); G93.41 Metabolic encephalopathy; D68.9 Coagulation defect, unspecified; I27.20 Pulmonary hypertension, unspecified; M50.022 Cervical disc disorder at C5-C6 level with myelopathy; E87.1 Hypo-osmolality and hyponatremia; I67.82 Cerebral ischemia; M50.122 Cervical disc disorder at C5-C6 level with radiculopathy; L03.116 Cellulitis of left lower limb; I50.9 Heart failure, unspecified; I11.0 Hypertensive heart disease with heart failure; E11.65 Type 2 diabetes mellitus with hyperglycemia; M47.816 Spondylosis without myelopathy or radiculopathy, lumbar region; G89.29 Other chronic pain; M48.061 Spinal stenosis, lumbar region without neurogenic claudication; R26.9 Unspecified abnormalities of gait and mobility; F32.A Depression, unspecified; M48.02 Spinal stenosis, cervical region; F14.10 Cocaine abuse, uncomplicated; I08.1 Rheumatic disorders of both mitral and tricuspid valves; M48.07 Spinal stenosis, lumbosacral region; Z20.822 Contact with and (suspected) exposure to COVID-19; E78.5 Hyperlipidemia, unspecified; F17.210 Nicotine dependence, cigarettes, uncomplicated; R29.6 Repeated falls; W18.30XA Fall on same level, unspecified, initial encounter; M47.16 Other spondylosis with myelopathy, lumbar region; M48.56XA Collapsed vertebra, not elsewhere classified, lumbar region, initial encounter for fracture; Z59.00 Homelessness unspecified; Z88.0 Allergy status to penicillin; Z86.16 Personal history of COVID-19; Z88.8 Allergy status to other drugs, medicaments and biological substances; Y93.89 Activity, other specified; Y92.89 Other specified places as the place of occurrence of the external cause; Y99.8 Other external cause status
CPT/HCPCS: 36415; 72040; 72128; 72131; 72141; 72148; 76000; 80048; 80053; 80202; 80305; 81003; 82010; 82533; 82962; 83036; 83935; 84145; 84300; 84443; 84484; 85025; 85027; 86850; 86900; 87106; 87426; 87493; 88304; 88311; 93005; 93306; 97116; 97162; 97164; 97165; 97168; 97530; 97535; 99291; C1713; J0690; J1100; J1170; J1580; J1815; J2250; J2270; J2405; J2704; J2765; J3010; J3370; J3490; J7030; J7060; L0172

== ENCOUNTER 2023-10-19 22:11 | Emergency (ER) | payer MEDICAID ==
[~2023-10-19] VITALS: Ht 170.2 cm; Wt 62.0 kg
[~2023-10-19 22:11] MED LIST changes: +AMLO5TAB88 PO; +LANTUSUD SUBCUT; -OMEP40CA20 PO
[2023-10-19 22:14] VITALS: BP 114/70; PULSE 54; RESP 18; TEMP 98.4; O2SAT 99
== END 2023-10-19 23:43 | disposition home or self-care (01) ==
LOC: ER 22:11
DX: F10.129 Alcohol abuse with intoxication, unspecified (principal); Z59.00 Homelessness unspecified; I10 Essential (primary) hypertension; Z88.0 Allergy status to penicillin; Z91.013 Allergy to seafood; Y90.9 Presence of alcohol in blood, level not specified
CPT/HCPCS: 99283

== ENCOUNTER 2023-11-01 21:35 | Inpatient (IN) | payer MEDICAID ==
[~2023-11-01] VITALS: Ht 188 cm; Wt 74.8 kg
[2023-11-01 21:35] VITALS: BP 152/85; PULSE 80; RESP 18; TEMP 97
[2023-11-01] MEDS ORDERED: DEXTROSE 50% WATER 50ML SYRINGE IV PRN (23:30)
[2023-11-01] MEDS ORDERED: NITROGLYCERIN 0.4MG TABLET SL SL PRN (23:30)
[2023-11-01] MEDS ORDERED: ONDANSETRON HCL 4MG/2ML INJ IV PRN (23:30)
[2023-11-01] MEDS ORDERED: GUAIFENESIN 200MG/10ML SUGAR FREE UDC PO PRN (23:30)
[2023-11-01] MEDS ORDERED: DOCUSATE SODIUM 100MG CAPSULE PO PRN (23:30)
[2023-11-01] MEDS ORDERED: MAGNESIUM/ALUMINUM HYDROXIDE/SIMETHICONE 30ML UDC PO PRN (23:30)
[2023-11-02 06:57] LABS: BASOPHILS % 0.4 % (0.0-2.0); EOSINOPHILS % 0.8 % (0.0-5.0); HEMATOCRIT. 26.2 % (42.0-52.0); LYMPHOCYTES % 22.4 % (20.0-50.0); MEAN CORPUSCULAR HEMOGLOBIN 28.7 pg (28.0-32.0); MEAN CORPUSCULAR HGB CONC 34.4 g/dL (31.0-37.0); MEAN CORPUSCULAR VOLUME 83.3 fL (80.0-94.0); MEAN PLATELET VOLUME 8.8 fl (7.4-10.4); MONOCYTES % 9.4 % (2.0-8.0); PLATELET 178 x1000/uL (130-400); RED BLOOD CELL COUNT 3.14 mill/uL (4.7-6.1); RED CELL DISTRIBUTION WIDTH 15.2 % (11.6-14.6)
[2023-11-02] MEDS: BLOOD SUGAR DIAGNOSTIC STRIP TEST SCH (07:01)
[2023-11-02] MEDS: INSULIN LISPRO 100 UNITS/ML SUBCUT SCH ×2 (07:05→17:00)
[2023-11-02 07:45] LABS: ALANINE AMINOTRANSFERASE 61 IU/L (10-49); ALBUMIN 3.2 g/dL (3.2-4.8); ASPARTATE AMINOTRANSFERASE 19 IU/L (<34); BILIRUBIN TOTAL 0.2 mg/dL (0.1-1.0); CALCIUM 8.8 mg/dL (8.7-10.4); CARBON DIOXIDE 24 mEq/L (21-32); CHLORIDE 110 mEq/L (98-107); CREATININE 1.2 mg/dL (0.6-1.3); GLUCOSE 231 mg/dL (70-105); POTASSIUM 5.8 mEq/L (3.5-5.1); PROTEIN TOTAL 6.3 g/dL (6.0-8.3); SODIUM 136 mEq/L (136-145); UREA NITROGEN BLOOD 23 mg/dL (9-23)
[2023-11-02 07:48] LABS: PREALBUMIN < 5.0 mg/dl (10.0-40.0)
[2023-11-02 08:00] VITALS: BP 156/98; PULSE 77; RESP 20; TEMP 97.7
[2023-11-02] MEDS ORDERED: INSULIN LISPRO 100 UNITS/ML SUBCUT SCH (09:00)
[2023-11-02] MEDS: SODIUM POLYSTYRENE SULFONATE 15 G/60 ML BOT PO NR (09:16)
[2023-11-02] MEDS: PANTOPRAZOLE SODIUM 40 MG/VIAL IV SCH (09:47)
[2023-11-02] MEDS: ACETAMINOPHEN 325MG TABLET PO PRN (10:50)
[2023-11-02] MEDS: CLONIDINE 0.1MG TABLET PO PRN (11:55)
[2023-11-02] MEDS: AMLODIPINE 10MG TABLET PO SCH (17:07)
[2023-11-02 20:00] VITALS: BP 103/64; PULSE 74; RESP 17; TEMP 97.5
[2023-11-02] MEDS ORDERED: INSULIN GLARGINE 100 UNITS/ML SUBCUT SCH (22:00)
[2023-11-02] MEDS: INSULIN GLARGINE 100 UNITS/ML SUBCUT SCH (22:11)
[2023-11-03 08:00] VITALS: BP 128/84; PULSE 72; RESP 19; TEMP 98.1
[2023-11-03] MEDS: LOPERAMIDE HCL 2MG CAPSULE PO NR (11:56)
[2023-11-03 20:00] VITALS: BP 108/61; PULSE 66; RESP 18; TEMP 98.4
[2023-11-04 06:25] LABS: BASOPHILS % 0.5 % (0.0-2.0); EOSINOPHILS % 1.2 % (0.0-5.0); HEMATOCRIT. 24.8 % (42.0-52.0); MEAN CORPUSCULAR HEMOGLOBIN 27.3 pg (28.0-32.0); MEAN CORPUSCULAR HGB CONC 32.5 g/dL (31.0-37.0); MEAN CORPUSCULAR VOLUME 84.2 fL (80.0-94.0); MEAN PLATELET VOLUME 8.7 fl (7.4-10.4); MONOCYTES % 6.2 % (2.0-8.0); NEUTROPHILS % 65.1 % (40.0-76.0); PLATELET 258 x1000/uL (130-400); RED BLOOD CELL COUNT 2.94 mill/uL (4.7-6.1); RED CELL DISTRIBUTION WIDTH 15.1 % (11.6-14.6); WHITE BLOOD COUNT 3.9 x1000/uL (4.5-11.0)
[2023-11-04 06:58] LABS: ALANINE AMINOTRANSFERASE 51 IU/L (10-49); ALBUMIN 3.2 g/dL (3.2-4.8); ASPARTATE AMINOTRANSFERASE 23 IU/L (<34); BILIRUBIN TOTAL < 0.2 mg/dL (0.1-1.0); CALCIUM 8.7 mg/dL (8.7-10.4); CARBON DIOXIDE 24 mEq/L (21-32); CHLORIDE 111 mEq/L (98-107); CREATININE 1.3 mg/dL (0.6-1.3); GLUCOSE 288 mg/dL (70-105); IRON 35 ug/dL (65-175); PROTEIN TOTAL 6.3 g/dL (6.0-8.3); SODIUM 134 mEq/L (136-145); T4 FREE 0.98 ng/dL (0.89-1.76); THYROID STIMULATING HORMONE 2.56 uIU/mL (0.55-4.78); TOTAL IRON BINDING CAPACITY 495 ug/dl (250-425); UREA NITROGEN BLOOD 28 mg/dL (9-23)
[2023-11-04] MEDS ORDERED: INSULIN LISPRO 100 UNITS/ML SUBCUT SCH (07:00)
[2023-11-04 08:00] VITALS: BP 119/77; PULSE 84; RESP 20; TEMP 97.5
[2023-11-04] MEDS: INSULIN LISPRO 100 UNITS/ML SUBCUT SCH (08:04)
[2023-11-04] MEDS: INSULIN LISPRO (LOW DOSE) 100 UNITS/ML SUBCUT SCH (08:04)
[2023-11-04 17:29] LABS: CORTISOL 16.4 ucg/dL; FERRITIN 232 ng/mL (22-322); FOLIC ACID (FOLATE) SERUM 8.15 ng/mL (>5.38); VITAMIN B12 SERUM 1094 pg/mL (211-911)
[2023-11-04 20:00] VITALS: BP 133/79; PULSE 77; RESP 19; TEMP 98.6
[2023-11-04] MEDS: FAMOTIDINE 20MG TABLET PO SCH (20:43)
[2023-11-04] MEDS: MUPIROCIN 2% OINT 15GM NS SCH (20:46)
[2023-11-04] MEDS: INSULIN GLARGINE 100 UNITS/ML SUBCUT SCH (22:04)
[2023-11-05 08:00] VITALS: BP 110/68; PULSE 82; RESP 17; TEMP 96.6
[2023-11-05] MEDS ORDERED: FAMOTIDINE 20MG/2ML VIAL IV SCH (09:00)
[2023-11-05] MEDS: ERGOCALCIFEROL 50000UNITS CAPSULE PO SCH (12:30)
[2023-11-05 12:57] LABS: CALCIUM 8.6 mg/dL (8.7-10.4); CARBON DIOXIDE 25 mEq/L (21-32); CHLORIDE 108 mEq/L (98-107); CREATININE 1.1 mg/dL (0.6-1.3); POTASSIUM 5.4 mEq/L (3.5-5.1); SODIUM 138 mEq/L (136-145); UREA NITROGEN BLOOD 25 mg/dL (9-23)
[2023-11-05 12:59] LABS: GLUCOSE 72 mg/dL (70-105)
[2023-11-05] MEDS: FERROUS SULFATE 325MG TABLET PO SCH (13:50)
[2023-11-05] MEDS: ACETAMINOPHEN 325MG TABLET PO PRN (17:39)
[2023-11-05 20:00] VITALS: BP 146/92; PULSE 81; RESP 19; TEMP 98.4
[2023-11-06] MEDS ORDERED: DEXTROSE 50% WATER 50ML SYRINGE IV PRN (07:15)
[2023-11-06 08:00] VITALS: BP 126/79; PULSE 90; RESP 20; TEMP 98.3
[2023-11-06] MEDS: ASCORBIC ACID 500 MG TABLET PO SCH (08:13)
[2023-11-06] MEDS: INSULIN LISPRO 100 UNITS/ML SUBCUT SCH ×2 (08:17→08:18)
[2023-11-06 08:39] LABS: CALCIUM 8.1 mg/dL (8.7-10.4); CARBON DIOXIDE 24 mEq/L (21-32); CHLORIDE 106 mEq/L (98-107); CREATININE 1.3 mg/dL (0.6-1.3); POTASSIUM 5.5 mEq/L (3.5-5.1); SODIUM 137 mEq/L (136-145); UREA NITROGEN BLOOD 29 mg/dL (9-23)
[2023-11-06 08:43] LABS: GLUCOSE 340 mg/dL (70-105)
[2023-11-06] MEDS: BLOOD SUGAR DIAGNOSTIC STRIP TEST SCH (11:23)
[2023-11-06 19:53] VITALS: BP 165/97; PULSE 94; RESP 20; TEMP 97.6
[2023-11-07 06:59] LABS: BASOPHILS % 0.6 % (0.0-2.0); EOSINOPHILS % 0.5 % (0.0-5.0); HEMATOCRIT. 22.9 % (42.0-52.0); HEMOGLOBIN. 7.6 g/dL (14.0-18.0); LYMPHOCYTES % 9.8 % (20.0-50.0); MEAN CORPUSCULAR HEMOGLOBIN 27.5 pg (28.0-32.0); MEAN CORPUSCULAR HGB CONC 33.1 g/dL (31.0-37.0); MEAN CORPUSCULAR VOLUME 83.1 fL (80.0-94.0); MEAN PLATELET VOLUME 8.4 fl (7.4-10.4); MONOCYTES % 5.4 % (2.0-8.0); NEUTROPHILS % 83.7 % (40.0-76.0); PLATELET 323 x1000/uL (130-400); RED BLOOD CELL COUNT 2.76 mill/uL (4.7-6.1); RED CELL DISTRIBUTION WIDTH 14.9 % (11.6-14.6); WHITE BLOOD COUNT 8.1 x1000/uL (4.5-11.0)
[2023-11-07 07:17] LABS: ALANINE AMINOTRANSFERASE 55 IU/L (10-49); ALBUMIN 3.2 g/dL (3.2-4.8); ASPARTATE AMINOTRANSFERASE 32 IU/L (<34); BILIRUBIN TOTAL 0.2 mg/dL (0.1-1.0); CALCIUM 8.2 mg/dL (8.7-10.4); CARBON DIOXIDE 25 mEq/L (21-32); CHLORIDE 104 mEq/L (98-107); CREATININE 1.1 mg/dL (0.6-1.3); POTASSIUM 4.8 mEq/L (3.5-5.1); PROTEIN TOTAL 5.8 g/dL (6.0-8.3); SODIUM 135 mEq/L (136-145); UREA NITROGEN BLOOD 24 mg/dL (9-23)
[2023-11-07 07:22] LABS: GLUCOSE 184 mg/dL (70-105)
[2023-11-07 08:00] VITALS: BP 139/82; PULSE 100; RESP 20; TEMP 98.5
[2023-11-07] MEDS: INSULIN LISPRO 100 UNITS/ML SUBCUT SCH (17:07)
[2023-11-07 20:00] VITALS: BP 154/85; PULSE 60; RESP 18; TEMP 98.8
[2023-11-07] MEDS: INSULIN GLARGINE 100 UNITS/ML SUBCUT SCH (21:39)
[2023-11-08 05:41] LABS: AMMONIA < 17 uMol/L (<32)
[2023-11-08 05:59] LABS: BASOPHILS % 0.6 % (0.0-2.0); HEMOGLOBIN. 7.5 g/dL (14.0-18.0); LYMPHOCYTES % 12.8 % (20.0-50.0); MEAN CORPUSCULAR HEMOGLOBIN 27.4 pg (28.0-32.0); MEAN CORPUSCULAR HGB CONC 32.8 g/dL (31.0-37.0); MEAN CORPUSCULAR VOLUME 83.5 fL (80.0-94.0); MEAN PLATELET VOLUME 8.4 fl (7.4-10.4); MONOCYTES % 8.4 % (2.0-8.0); NEUTROPHILS % 78.2 % (40.0-76.0); PLATELET 316 x1000/uL (130-400); PROTHROMBIN TIME 11.4 sec (9.6-11.0); RED BLOOD CELL COUNT 2.75 mill/uL (4.7-6.1); RED CELL DISTRIBUTION WIDTH 14.7 % (11.6-14.6)
[2023-11-08 06:09] LABS: ALANINE AMINOTRANSFERASE 53 IU/L (10-49); ALBUMIN 3.1 g/dL (3.2-4.8); ASPARTATE AMINOTRANSFERASE 40 IU/L (<34); BILIRUBIN TOTAL 0.2 mg/dL (0.1-1.0); CARBON DIOXIDE 25 mEq/L (21-32); CHLORIDE 103 mEq/L (98-107); CREATININE 1.3 mg/dL (0.6-1.3); GLUCOSE 158 mg/dL (70-105); IRON 10 ug/dL (65-175); POTASSIUM 4.6 mEq/L (3.5-5.1); PROTEIN TOTAL 6.2 g/dL (6.0-8.3); SODIUM 132 mEq/L (136-145); TOTAL IRON BINDING CAPACITY 503 ug/dl (250-425); UREA NITROGEN BLOOD 22 mg/dL (9-23)
[2023-11-08 06:30] LABS: BILIRUBIN DIRECT < 0.1 mg/dL (<=3.0)
[2023-11-08 06:51] LABS: FERRITIN 270 ng/mL (22-322); FOLIC ACID (FOLATE) SERUM 13.19 ng/mL (>5.38); HEPATITIS A AB IGM NEGATIVE (Negative); HEPATITIS B CORE AB IGM NEGATIVE (Negative); HEPATITIS B SURFACE ANTIGEN NEGATIVE (Negative); HEPATITIS C AB NON REACTIVE (Neg) (Negative); VITAMIN B12 SERUM 762 pg/mL (211-911)
[2023-11-08 07:50] VITALS: PULSE 99; RESP 16
[2023-11-08 08:00] VITALS: BP 108/67; PULSE 99; RESP 18; TEMP 98
[2023-11-08] MEDS: FERROUS SULFATE 325MG TABLET PO SCH ×2 (08:14→16:32)
[2023-11-08] MEDS: INSULIN LISPRO 100 UNITS/ML SUBCUT SCH (17:22)
[2023-11-08 20:00] VITALS: BP 123/59; PULSE 99; RESP 18; TEMP 101.3
[2023-11-09] VITALS (9 sets, daily range): BP systolic 114–146; BP diastolic 48–91; PULSE 87–104; RESP 14–20; TEMP 97.4–103.6
[2023-11-09 07:34] LABS: BASOPHILS % 0.7 % (0.0-2.0); CALCIUM 7.7 mg/dL (8.7-10.4); CARBON DIOXIDE 24 mEq/L (21-32); CHLORIDE 99 mEq/L (98-107); CREATININE 1.3 mg/dL (0.6-1.3); DIFFERENTIAL COMMENT 0; EOSINOPHILS % 0.1 % (0.0-5.0); GLUCOSE 207 mg/dL (70-105); LYMPHOCYTES % 12.1 % (20.0-50.0); MEAN CORPUSCULAR HEMOGLOBIN 27.3 pg (28.0-32.0); MEAN CORPUSCULAR HGB CONC 33.1 g/dL (31.0-37.0); MEAN CORPUSCULAR VOLUME 82.4 fL (80.0-94.0); MEAN PLATELET VOLUME 8.6 fl (7.4-10.4); MONOCYTES % 10.7 % (2.0-8.0); NEUTROPHILS % 76.4 % (40.0-76.0); PLATELET 292 x1000/uL (130-400); RED BLOOD CELL COUNT 2.45 mill/uL (4.7-6.1); RED CELL DISTRIBUTION WIDTH 14.9 % (11.6-14.6); SODIUM 129 mEq/L (136-145); UREA NITROGEN BLOOD 21 mg/dL (9-23); WHITE BLOOD COUNT 9.4 x1000/uL (4.5-11.0)
[2023-11-09 08:28] LABS: HEMATOCRIT. 20.2 % (42.0-52.0); HEMOGLOBIN. 6.7 g/dL (14.0-18.0)
[2023-11-09] MEDS ORDERED: ERGO2000 PO (09:10)
[2023-11-09] MEDS ORDERED: FERR325T6 MT (09:10)
[2023-11-09] MEDS ORDERED: OMEP20CA14 MT (09:10)
[2023-11-09] MEDS ORDERED: SUCR1TAB30 MT (09:10)
[2023-11-09] MEDS ORDERED: AMLO10TA4 MT (09:10)
[2023-11-09] MEDS: INSULIN LISPRO 100 UNITS/ML SUBCUT SCH (17:00)
[2023-11-09] MEDS: VANCOMYCIN 1.25GM PMX (XELLIA) 250 ML IV NR (23:30)
[2023-11-10 08:00] VITALS: BP 104/63; PULSE 90; RESP 18; TEMP 97.5
[2023-11-10 08:35] LABS: BASOPHILS % 0.6 % (0.0-2.0); HEMATOCRIT. 22.8 % (42.0-52.0); HEMOGLOBIN. 7.4 g/dL (14.0-18.0); LYMPHOCYTES % 8.2 % (20.0-50.0); MEAN CORPUSCULAR HEMOGLOBIN 26.2 pg (28.0-32.0); MEAN CORPUSCULAR HGB CONC 32.3 g/dL (31.0-37.0); MEAN CORPUSCULAR VOLUME 81.3 fL (80.0-94.0); MEAN PLATELET VOLUME 8.2 fl (7.4-10.4); MONOCYTES % 8.7 % (2.0-8.0); NEUTROPHILS % 82.5 % (40.0-76.0); PLATELET 305 x1000/uL (130-400); RED BLOOD CELL COUNT 2.81 mill/uL (4.7-6.1); RED CELL DISTRIBUTION WIDTH 15.3 % (11.6-14.6); WHITE BLOOD COUNT 13.6 x1000/uL (4.5-11.0)
[2023-11-10 08:42] LABS: INR 1.1; PROTHROMBIN TIME 11.8 sec (9.6-11.0)
[2023-11-10 08:50] LABS: CREATININE 1.6 mg/dL (0.6-1.3); POTASSIUM 3.4 mEq/L (3.5-5.1)
[2023-11-10] MEDS: ACETAMINOPHEN 500MG TABLET PO PRN (09:14)
[2023-11-10] MEDS: DIPHENHYDRAMINE 25MG CAPSULE PO PRN (09:14)
[2023-11-10] MEDS ORDERED: TRAMADOL 50MG TABLET PO PRN (11:15)
[2023-11-10] MEDS ORDERED: BISACODYL 10MG SUPP PR NR (12:45)
[2023-11-10] MEDS: SORBITOL 70% SOLN 30ML PO NR (15:25)
[2023-11-10] MEDS: POTASSIUM CHLORIDE 20MEQ TABLET SR PO NR (15:25)
[2023-11-10] MEDS: METOCLOPRAMIDE HCL 10MG/2ML VIAL IV SCH (15:25)
[2023-11-10 20:00] VITALS: BP 140/78; PULSE 108; RESP 18; TEMP 102.6
[2023-11-10] MEDS: SORBITOL 70% SOLN 30ML PO SCH (20:00)
[2023-11-10] MEDS: DEXT 5%/0.45% NACL KCL 40MEQ/L 1,000 ML IV SCH (21:00)
[2023-11-10 22:10] LABS: HEMATOCRIT 24.8 % (42.0-52.0)
[2023-11-10 22:40] VITALS: BP 95/49; PULSE 110; RESP 19; TEMP 102
[2023-11-11] MEDS: SODIUM CHLORIDE 0.9% 1,000 ML IV SCH
[2023-11-11 07:20] LABS: HEMATOCRIT. 24.4 % (42.0-52.0); MEAN CORPUSCULAR HEMOGLOBIN 26.5 pg (28.0-32.0); MEAN CORPUSCULAR HGB CONC 32.8 g/dL (31.0-37.0); MEAN PLATELET VOLUME 8.2 fl (7.4-10.4); PLATELET 348 x1000/uL (130-400); RED BLOOD CELL COUNT 3.01 mill/uL (4.7-6.1); RED CELL DISTRIBUTION WIDTH 15.1 % (11.6-14.6); WHITE BLOOD COUNT 14.6 x1000/uL (4.5-11.0)
[2023-11-11 07:25] LABS: INR 1.1; PROTHROMBIN TIME 12.4 sec (9.6-11.0)
[2023-11-11 07:27] LABS: CARBON DIOXIDE 21 mEq/L (21-32); CHLORIDE 100 mEq/L (98-107); CREATININE 1.3 mg/dL (0.6-1.3); GLUCOSE 241 mg/dL (70-105); POTASSIUM 3.7 mEq/L (3.5-5.1); SODIUM 130 mEq/L (136-145); UREA NITROGEN BLOOD 21 mg/dL (9-23)
[2023-11-11 08:00] VITALS: BP 108/63; PULSE 95; RESP 20; TEMP 98
[2023-11-11 08:00] LABS: DIFFERENTIAL COMMENT 1
[2023-11-11] MEDS: VANCOMYCIN 1GM/200ML PMX (BAXTER) IV SCH (11:42)
[2023-11-11 17:25] VITALS: BP 108/63; PULSE 98; TEMP 99.9; O2SAT 100
[2023-11-11] MEDS ORDERED: CEFEPIME 1GM/50ML 50 ML IV SCH (18:00)
[2023-11-11] MEDS ORDERED: CEFEPIME HCL 1000MG VIAL IM SCH (21:00)
[2023-11-12 07:15] LABS: PLATELET ESTIMATE NORMAL; TOXIC GRANULATION 1+
[2023-11-12 14:08] LABS: OVA & PARASITE EXAM Final report (.)
== END 2023-11-11 18:18 | disposition short-term general hospital (02) | DRG 52 ==
PROVIDERS: ADMIT Physical Medicine & Rehabilitation Spinal Cord Injury Medicine; ATTEND Internal Medicine
PROC: 30233N1 Transfusion of Nonautologous Red Blood Cells into Peripheral Vein, Percutaneous Approach (ICD-10-PCS; principal; 2023-11-09)
DX: G93.41 Metabolic encephalopathy (principal); I21.4 Non-ST elevation (NSTEMI) myocardial infarction; A41.9 Sepsis, unspecified organism; E43 Unspecified severe protein-calorie malnutrition; J96.02 Acute respiratory failure with hypercapnia; J96.01 Acute respiratory failure with hypoxia; N17.9 Acute kidney failure, unspecified; E11.10 Type 2 diabetes mellitus with ketoacidosis without coma; J18.9 Pneumonia, unspecified organism; M62.82 Rhabdomyolysis; E11.649 Type 2 diabetes mellitus with hypoglycemia without coma; I13.0 Hypertensive heart and chronic kidney disease with heart failure and stage 1 through stage 4 chronic kidney disease, or unspecified chronic kidney disease; E11.22 Type 2 diabetes mellitus with diabetic chronic kidney disease; E11.40 Type 2 diabetes mellitus with diabetic neuropathy, unspecified; N18.9 Chronic kidney disease, unspecified; F14.10 Cocaine abuse, uncomplicated; R13.10 Dysphagia, unspecified; R26.9 Unspecified abnormalities of gait and mobility; R47.1 Dysarthria and anarthria; E87.5 Hyperkalemia; G82.50 Quadriplegia, unspecified; D50.9 Iron deficiency anemia, unspecified; E55.9 Vitamin D deficiency, unspecified; E78.00 Pure hypercholesterolemia, unspecified; E87.1 Hypo-osmolality and hyponatremia; F12.90 Cannabis use, unspecified, uncomplicated; Z20.822 Contact with and (suspected) exposure to COVID-19; F32.A Depression, unspecified; I50.32 Chronic diastolic (congestive) heart failure; K52.9 Noninfective gastroenteritis and colitis, unspecified; K86.1 Other chronic pancreatitis; M48.03 Spinal stenosis, cervicothoracic region; M48.56XD Collapsed vertebra, not elsewhere classified, lumbar region, subsequent encounter for fracture with routine healing; M51.06 Intervertebral disc disorders with myelopathy, lumbar region; G89.29 Other chronic pain; K21.9 Gastro-esophageal reflux disease without esophagitis; T40.5X1A Poisoning by cocaine, accidental (unintentional), initial encounter; R53.1 Weakness; R74.01 Elevation of levels of liver transaminase levels; S31.811A Laceration without foreign body of right buttock, initial encounter; Z59.00 Homelessness unspecified; Z72.0 Tobacco use; Z79.4 Long term (current) use of insulin; Z81.8 Family history of other mental and behavioral disorders; Z88.0 Allergy status to penicillin; Z90.49 Acquired absence of other specified parts of digestive tract; Z91.81 History of falling; X58.XXXA Exposure to other specified factors, initial encounter; Y93.89 Activity, other specified; Y92.89 Other specified places as the place of occurrence of the external cause; Y99.8 Other external cause status
CPT/HCPCS: 36415; 76770; 80048; 80053; 80076; 82140; 82306; 82533; 82607; 82728; 82746; 82962; 83036; 83540; 83550; 84134; 84439; 84443; 84481; 84681; 85014; 85018; 85025; 85044; 86705; 86709; 86850; 86900; 86920; 87015; 87045; 87177; 87209; 87340; 87426; 87427; 87449; 89055; 92523; 92610; 97110; 97112; 97116; 97150; 97162; 97166; 97530; 97535; C9113; J0692; J1815; J2765; J3370; P9016; Q0163